=== PATIENT | male | born 1985 | race African-American/Black ===

== ENCOUNTER 2017-01-22 09:56 | Inpatient (IN) | payer OTHER ==
[~2017-01-22] VITALS: Ht 170.2 cm; Wt 60.6 kg
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
--- NOTE | ~2017-01-22 | CR72 ---
[facility] A Service of [facility] RADIOLOGY TEXT RESULTS PATIENT: JEROME DAVIS LOCATION: [facility] 319-01 : [birth year] UNIT #: [id number] AGE: [address]: Ayse Tong MD SEX: M ORDER DR: [id number] [address] [address] [id number] I MR#: [id number] Acc #: [id number] NAME: JEROME DAVIS : 1985 SEX: M STUDY DATE/TIME: 01/22/2017 16:17 UNIT: [employer] [facility] ROOM: [id number] STUDY DESCRIPTION: CR Chest Single View Portable Attending Physician: Ayse Tong M.D. Ordering Physician: Ayse Tong M.D. Primary Care Physician: No Primary Care Physician MEDICAL IMAGING REPORT This report is preliminary unless electronic signature is present EXAM AP portable chest Date: 01/22/2017 HISTORY Cough, congestion, elevated white blood cell count since yesterday. Alcohol withdrawal. COMPARISON None. FINDINGS A single AP portable view of the chest shows both lungs to be clear. The heart is normal in size. The mediastinal contour is normal. No significant bone abnormalities are seen. IMPRESSION Normal portable chest. Dictated by... Santa Franklin M.D. THIS IS AN ELECTRONICALLY VERIFIED REPORT Santa Franklin M.D. at 01/25/2017 8:50 AM JOANNE/jhonny TD: 01/23/2017 03:37 JOB #: [id number] MEDICAL IMAGING REPORT [facility] A Service of [facility] RADIOLOGY TEXT RESULTS PATIENT: JEROME DAVIS LOCATION: [facility] 319-01 : [birth year] UNIT #: [id number] AGE: [address]: Ayse Tong MD SEX: M ORDER DR: Page 1 of 1 COPY
--- NOTE | ~2017-01-22 | DS ---
Unit #: [id number] #: [id number] Patient: JEROME DAVIS [id number] [address] [address] [id number] I MR#: [id number] NAME: JEROME DAVIS ROOM: 319 Age: 31 Sex: M Admission Date: 01/22/2017 : 1985 Discharge Date: 01/24/2017 Attending Physician: Ayse Tong M.D. Primary Care Physician: No Primary Care Physician DISCHARGE SUMMARY FINAL DIAGNOSIS Alcohol intoxication and alcohol withdrawal. SECONDARY DIAGNOSES 1. Hypertension. 2. Acute kidney injury. CONSULTS 1. Dr. Webb. 2. Pulmonary, Dr. Yazmin Dougherty. HOSPITAL COURSE Isrvso-rlzd-fqob-old male who basically was binge drinking. Was seen and evaluated and admitted through the emergency room. Patient was seen and evaluated. He had some anion gap metabolic acidosis with (1) withdrawal. He is currently evaluated, suitable and stable for discharge. He will be discharged in stable condition. MEDICATIONS Medications on discharge include: 1. Librium 25 mg p.o. b.i.d. (number 14 pills given). 2. Lopressor 25 mg p.o. b.i.d. 3. Hydrochlorothiazide 25 mg p.o. daily. DISCHARGE PLAN He currently does not have a primary care provider. He is scheduled to follow up with me in the office. He is to call to schedule an appointment at [address] [place] [address]. NOTE: Time spent coordinating discharge was about 27 minutes. Dictated by... Shital Lantigua/renard TD: 01/24/2017 15:28 JOB #: [id number] Unit #: [id number] #: [id number] Patient: JEROME DAVIS DISCHARGE SUMMARY Page 1 of 1 X Myah Gonzalez MD DISCHARGE SUMMARY
--- NOTE | ~2017-01-22 | CO ---
Unit #: [id number] #: [id number] Patient: JEROME AGUILLON [id number] [id number] [facility]. [place], [place] [address] [id number] I MR#: [id number] NAME: JEROME AGUILLON ROOM: 319 Age: 31 Sex: M Admission Date: 01/22/2017 : 1985 Attending Physician: Ayse Tong M.D. Primary Care Physician: Primary Care Physician No Consultation Date: 01/23/2017 CONSULTATION REPORT REASON FOR CONSULTATION Alcohol abuse, withdrawal. HISTORY OF PRESENT ILLNESS Mr. Jerome Aguillon is a 31-year-old male, seen in room 9 in the emergency room at [facility] on 01/23/2017. The patient was pleasant, cooperative during interview. Able to answer questions appropriately. Reported that he was drinking over a gallon of alcohol since age 21 every day. The patient reported having withdrawals, anxious, nervous, but denied any suicidal or homicidal ideation. Denied any psychotic symptom at this time. The patient denied any depression or any previous treatment except once. The patient's vital signs; temperature 98.0, pulse 114, respiratory rate 16, blood pressure 150/100, oxygen saturation 97%. PAST PSYCHIATRIC HISTORY Unknown for any history of any previous psychiatric treatment. History of one-time detox, details unknown at this time. No history of any suicide attempt, depression, or anxiety. MEDICAL HISTORY Remarkable for history of seizure related to alcohol. No other chronic medical illness. HOME MEDICATIONS None. ALLERGIES No known drug allergies. FAMILY HISTORY AND SOCIAL HISTORY The patient reports that he has a good support system from his . No history of abuse. No history of any illicit drugs except use of alcohol on a daily basis. REVIEW OF SYSTEMS Complete review of systems is unremarkable except as mentioned above. Vital signs, please see above. MENTAL STATUS EXAMINATION General appearance, the patient dressed casually in hospital attire, lying comfortably in bed. Attention span and concentration, fair. Speech, regular rate and coherent. Oriented in time, place, and person. Mood and affect, labile. Thought process, coherent. Thought content, the patient Unit #: [id number] #: [id number] Patient: JEROME AGUILLON denied any thoughts of harming self or others or any psychotic symptom. Recent and remote memory, fair. Language, intact. Fund of knowledge, fair to slightly impaired. DIAGNOSIS Psychiatric: Alcohol use disorder, severe, F10.20. Secondary diagnosis: Deferred. Medical diagnosis: Please refer to H and P. Stressors: Psychosocial stressors. ASSESSMENT/PLAN 1. Supportive psychotherapy and psychoeducation provided to the patient. 2. Educated about benefits and side effects of medication and course and prognosis of illness. 3. Advised to continue with the detox protocol, CIWA protocol. If needed, consider further adjustment of medication. Please feel free to call if any questions, telephone # . Dictated by... Shital Calixto/daniel TD: 01/24/2017 00:59 JOB #: [id number] CONSULTATION REPORT Page 1 of 1 X Ollie Webb MD X CONSULTATION REPORT
--- NOTE | ~2017-01-22 | CO ---
Unit #: [id number] #: [id number] Patient: JEROME AGUILLON [id number] [address] [place], [place] [address] [id number] I MR#: [id number] NAME: JEROME AGUILLON ROOM: 319 Age: 31 Sex: M Admission Date: 01/22/2017 : 1985 Attending Physician: Ayse Tong M.D. Primary Care Physician: Primary Care Physician No CONSULTATION REPORT REASON FOR CONSULTATION Electrolyte abnormality. HISTORY OF PRESENT ILLNESS Mr. Aguillon is a 31-year-old black male with past medical history of alcohol abuse of about fifth of whisky a day, who presented to the hospital because of nausea, vomiting, and abdominal pain associated with thin bout of dark emesis in the last 24 hours. Upon arrival to the emergency department, his blood pressure was 150/100 with carbon dioxide of 12 and anion gap of 31, BUN was 24, and creatinine was 1.7 mg/dL with urinalysis that showed +3 ketone. The patient was started on IV hydration and admitted to the hospital. We were consulted to help in management of electrolyte abnormalities and acute kidney injury. Of note, latest lab showed creatinine of 0.7, potassium of 3, and phos of 1.5. The patient stated that he does not eat much when drinks alcohol. PAST MEDICAL HISTORY Alcohol abuse. HOME MEDICATIONS None. PAST SURGICAL HISTORY None. ALLERGIES No known drug allergy. SOCIAL HISTORY Denied IV drug abuse. Positive for drinking. REVIEW OF SYSTEMS A 12-point of review of systems was conducted and they were all negative except what is per history of present illness. PHYSICAL EXAMINATION GENERAL: Alert and oriented x3, in no acute distress. VITAL SIGNS: Temperature 98, heart rate 87, blood pressure 118/71, pulse 78, respiratory rate 18. HEENT: Normocephalic and atraumatic. Pupils are equal, round, and reactive to light and accommodation. Extraocular muscles are intact. NECK: No JVD. No lymphadenopathy. CHEST: Clear to auscultation bilaterally. HEART: Regular rate and rhythm. S1 and S2 normal. Unit #: [id number] #: [id number] Patient: JEROME AGUILLON ABDOMEN: Bowel sounds positive. No tenderness. No guarding. EXTREMITIES: No edema, no cyanosis, no clubbing. DIAGNOSTIC STUDIES LABORATORY RESULTS: Potassium is 3, creatinine 0.7, phos 1.5. ASSESSMENT AND PLAN 1. Acute kidney injury due to volume depletion due to emesis and decrease oral intake, improves with IV hydration. 2. Hypokalemia, most likely related to hypomagnesemia as well as we will magnesium, however, his last magnesium was 2 in the blood. I am going to start the patient on potassium supplement 20 mEq p.o. daily as the patient is being started on hydrochlorothiazide as well for his hypertension. 3. Hypophosphatemia. Educated about increasing oral intake and eating food rich with phosphorus. I had a lengthy discussion with the patient more than 35 minutes about quitting alcohol as well. 4. Hypertension. The patient is being started on hydrochlorothiazide. We will need to follow up with Dr. Ashby in 1 to 2 weeks with BMP, magnesium, and phosphate before his visit. 5. Alcohol abuse. Educated about quitting alcohol. Dictated by... Shital Magaña/daniel TD: 01/24/2017 19:16 JOB #: [id number] CONSULTATION REPORT Page 1 of 1 X X CONSULTATION REPORT
--- NOTE | ~2017-01-22 | CO ---
Unit #: [id number] #: [id number] Patient: JEROME DAVIS [id number] [address] [address] [id number] I MR#: [id number] NAME: JEROME DAVIS ROOM: 319 Age: 31 Sex: M Admission Date: 01/22/2017 : 1985 Attending Physician: Ayse Tong M.D. Primary Care Physician: Primary Care Physician No Consultation Date: 01/22/2017 CONSULTATION REPORT REASON FOR CONSULTATION Acute kidney injury and anion gap metabolic acidosis. HISTORY OF PRESENT ILLNESS This 31-year-old male with known alcohol abuse came in to the hospital today with abdominal pain. He recently binged drink some beer and has had nausea and vomiting for the past 24 hours. In the emergency room, his anion gap was around 19 with a serum bicarbonate of 13. PAST MEDICAL HISTORY Significant for, 1. Seizures related to alcohol withdrawal. 2. Alcohol abuse. PAST SURGICAL HISTORY Left shoulder surgery. HOME MEDICATIONS None. ALLERGIES None. FAMILY HISTORY Noncontributory. REVIEW OF SYSTEMS Currently, he denies chest pain, shortness of breath, nausea, or vomiting. At present, he received some Zofran and Ativan. He denies ingestion of anything other than beer. Other 13 systems reviewed, unless noted are negative. PHYSICAL EXAMINATION VITAL SIGNS: His temperature is 98, heart rate is 114, blood pressure 150/100. He is 97% on room air. HEENT: Extraocular muscles are intact. No eye drainage or icterus. Oropharynx is clear. NECK: Supple without JVD, thyromegaly, or carotid bruit. CHEST: Clear to auscultation bilaterally. CARDIAC: S1 and S2. Normal sinus rhythm. No gallop or rub. ABDOMEN: Soft, nontender, and nondistended. Positive bowel sounds. No hepatosplenomegaly. EXTREMITIES: No cyanosis, clubbing, or edema. Unit #: [id number] #: [id number] Patient: JEROME DAVIS DIAGNOSTIC STUDIES LABORATORY RESULTS: Show sodium 132, potassium of 5, chloride of 100, bicarbonate of 13, BUN of 19, creatinine of 1.3, glucose of 90, anion gap of 19, serum osmolality is pending. Urinalysis shows 3+ protein, 3+ blood, rbc's 10-25, wbc's 0-2. ABG 7.3, pCO2 of 25, pO2 of 97. ASSESSMENT 1. Acute kidney injury with anion gap metabolic acidosis. At this point, this looks more like ingestion of ethanol and dehydration. He does have acidemia on the blood gas, so I will give him a short course of bicarbonate drip. Serum osmolality will be checked, and methanol and ethylene glycol level will also be sent, although he denies ingestion of these things. 2. Abnormal urinalysis. I would like to have this urine repeated. 3. History of alcohol withdrawal seizures. 4. Tobacco abuse. 5. Alcoholism. I discussed trying to enter treatment program with him. PLAN We will give him 1 L of half-normal saline with 75 mEq of bicarbonate. He can also take some oral bicarbonate and await serum osmolarity and other studies that have been ordered. He is going to be admitted to the intensive care unit. Thank you very much for allowing me to see Johnny Benz in consultation. Dictated by... Vandana Beth M.D. REX/daniel TD: 01/22/2017 22:43 JOB #: [id number] CONSULTATION REPORT Page 1 of 1 X Vandana Beth MD CONSULTATION REPORT
--- NOTE | ~2017-01-22 | EKG ---
PATIENT: JEROME DAVIS UNIT #: [id number] Ventricular Rate: 82 BPM Atrial Rate: 82 BPM P-R Interval: 128 ms QRS Duration: 76 ms Q-T Interval: 372 ms QTC Calculation(Bezet): 434 ms P [place]: 31 degrees Calculated R [place]: 41 degrees Calculated T [place]: 18 degrees Diagnosis Line: Normal sinus rhythm Diagnosis Line: Normal ECG Diagnosis Line: When compared with ECG of 18-JAN-2014 09:43, Diagnosis Line: No significant change was found Diagnosis Line: Confirmed by MOISES ORR MD ([id number]) on 01/23/2017 Diagnosis Line: 3:45:04 PM INTERPRETING MD: KIRBY NATH
--- NOTE | ~2017-01-22 | CO ---
Unit #: [id number] #: [id number] Patient: JEROME DAVIS [id number] [facility]. [place], [place] [address] [id number] I MR#: [id number] NAME: JEROME DAVIS ROOM: 319 Age: 31 Sex: M Admission Date: 01/22/2017 : 1985 Attending Physician: Ayse Tong M.D. Primary Care Physician: Primary Care Physician No Consultation Date: 01/24/2017 CONSULTATION REPORT REASON FOR CONSULTATION Followup. DISCUSSION Mr. Bandar Benz is a 31-year-old male, seen in room 319, bed 1 on 01/24/2017 at [facility]. The patient was admitted for the alcohol detox and alcohol withdrawal. The patient reports feeling better. Denied any suicidal or homicidal ideation. Denied any psychotic symptom. The patient is agreeable to follow up in CD-I[facility] program of [facility] and consider Vivitrol injection and ReVia. The patient's vital signs; temperature 98.0, pulse 78, respirations 18, blood pressure 155/108, oxygen saturation 100%. REVIEW OF SYSTEMS Complete review of systems unremarkable. MENTAL STATUS EXAMINATION General appearance; the patient dressed casually in hospital attire, lying comfortably in bed. Attention span and concentration, fair. Speech, regular rate and coherent. Oriented in time, place, and person. Mood and affect, labile. Thought process, coherent. Thought content, the patient denied any thoughts of harming self or others or any psychotic symptom. Recent and remote memory, fair. Language, intact. Fund of knowledge, fair to slightly impaired. Insight and judgment, fair to slightly impaired. DIAGNOSES Psychiatric: Alcohol use disorder, severe, F10.20; mood disorder, not otherwise specified, F32.9. Secondary diagnosis: Deferred. ASSESSMENT AND PLAN 1. Supportive psychotherapy and psychoeducation provided to the patient. 2. Educated about benefits and side effects of medication and course and prognosis of illness. 3. Advised the patient to follow up in [facility] program of [facility]. The patient was given crisis line #[phone] with a plan to consider injection Vivitrol. Dictated by... Ollie Webb M.D. Unit #: [id number] #: [id number] Patient: JEROME DAVIS EMRE/daniel TD: 01/24/2017 23:56 JOB #: [id number] CONSULTATION REPORT Page 1 of 1 X Ollie Webb MD CONSULTATION REPORT
[~2017-01-22 09:56] MED LIST: AUGMENTIN PO; MEDROL4 MG/DOSE- PO; MOTRIN400 MG PO
[2017-01-22 11:16] LABS: BASOPHIL% 0.1 % (0-2.5); EOSINOPHIL% 0.1 % (0.0-7.0); HEMATOCRIT 39.8 % (38.0-50.0); LYMPHOCYTE# 1.5 X10e3 (1.0-3.5); LYMPHOCYTE% 9.8 % (17.0-45.0); MEAN CELL VOLUME 91.1 FL (83-96); MEAN CORPUSCULAR HEMOGLOBIN 29.8 PG (28-34); MEAN CORPUSCULAR HGB CONC 32.7 g/dL (30-36); MEAN PLATELET VOLUME 7.5 FL (6.5-11.5); MONOCYTE# 0.9 X10e3 (0-1.0); MONOCYTE% 5.9 % (3.0-12.0); NEUTROPHIL# 12.6 X10e3 (1.5-7.1); NEUTROPHIL% 84.1 % (40-75); PLATELET COUNT 254 X10e3 (140-420); RED BLOOD COUNT 4.37 X10e (3.90-5.60); RED CELL DISTRIBUTION WIDTH 14.9 % (11.0-15.5)
[2017-01-22 11:17] LABS: DIFF IND NO
[2017-01-22 11:40] LABS: URINE SOURCE CLEAN CATCH
[2017-01-22 11:45] LABS: URINE APPEARANCE CLEAR; URINE BILIRUBIN NEG (NEG); URINE BLOOD 3+ (NEG); URINE COLOR YELLOW; URINE GLUCOSE NEG (NEG); URINE KETONE 3+ (NEG); URINE LEUKOCYTE ESTERASE NEG (NEG); URINE NITRATE NEG (NEG); URINE PROTEIN 3+ (NEG); URINE SPECIFIC GRAVITY 1.018 (1.003-1.035)
[2017-01-22 11:48] LABS: URINE BACTERIA AUWI NEG (NEGATIVE); URINE SQUAMOUS EPITHELIAL CELL NONE SEEN /[HPF]; UWBCS1 AUWI 0-2 (0-5)
[2017-01-22 11:52] LABS: BILIRUBIN, DIRECT 0.1 mg/dL (0.0-0.2); BILIRUBIN,TOTAL 2.1 mg/dL (0.2-2.0); BUN/CREATININE RATIO 14.11; CALCIUM SERUM 9.7 mg/dL (8.4-10.2); CREATININE SERUM 1.7 mg/dL (0.6-1.4); GLOM FILT RATE Estimated 61.8 mL/min (>60); PROTEIN TOTAL SERUM 10.8 g/dL (6.0-8.3)
[2017-01-22 12:34] LABS: CULTURE INDICATED? NO; U HYALINE CASTS AUWI 25-50 /[LPF]
[2017-01-22 12:35] LABS: URINE AMORPHOUS SEDIMENT AMORP URATES; URINE GRANULAR CAST 0-2 /[HPF]; URINE MUCUS PRESENT; URINE WAXY CAST 0-2 /[HPF]
[2017-01-22] MEDS ORDERED: NO MEDICATIONS (14:29)
[2017-01-22 16:38] LABS: AMPHETAMINE NEG (NEG); BARBITURATES NEG (NEG); BENZODIAZEPINES NEG (NEG); COCAINE NEG (NEG); MARIJUANA NEG (NEG); OPIATES NEG (NEG); TRICYCLIC ANTIDEPRESSANTS NEG (NEG); U METHADONE NEG (NEG)
[2017-01-22 16:42] LABS: ARTERIAL BLD GAS O2 SATURATION 98.1 % (90.0-100.0); ARTERIAL BLOOD GAS CARBOXY HB 1.1 %sat (0.0-9.0); ARTERIAL BLOOD GAS HCO3 12.8 mmol/L; ARTERIAL BLOOD GAS MET HB 1.3 %sat (0.0-2.0); ARTERIAL BLOOD GAS PCO2 25.9 mmHg (35.0-45.0); ARTERIAL BLOOD GAS PO2 97.7 mmHg (80.0-100); ARTERIAL BLOOD GAS pH 7.304 (7.350-7.450)
[2017-01-22 16:43] LABS: ARTERIAL BLOOD GAS ALLEN TEST NORMAL; ARTERIAL BLOOD GAS ART SITE LEFT RADIAL; ARTERIAL DRAW? YES
[2017-01-22 17:30] LABS: BUN/CREATININE RATIO 14.61; CALCIUM SERUM 8.6 mg/dL (8.4-10.2); CREATININE SERUM 1.3 mg/dL (0.6-1.4); GLOM FILT RATE Estimated 85.5 mL/min (>60)
[2017-01-22 20:28] LABS: BUN/CREATININE RATIO 13.33; CALCIUM SERUM 8.7 mg/dL (8.4-10.2); CREATININE SERUM 1.2 mg/dL (0.6-1.4); GLOM FILT RATE Estimated 94.2 mL/min (>60); POTASSIUM 4.4 mmol/L (3.5-5.1)
[2017-01-24 06:11] LABS: BASOPHIL% 0.3 % (0-2.5); EOSINOPHIL# 0.1 X10e3 (0-0.7); EOSINOPHIL% 0.7 % (0.0-7.0); HEMATOCRIT 32.7 % (38.0-50.0); LYMPHOCYTE# 1.5 X10e3 (1.0-3.5); LYMPHOCYTE% 21.5 % (17.0-45.0); MEAN CELL VOLUME 90.1 FL (83-96); MEAN CORPUSCULAR HEMOGLOBIN 30.3 PG (28-34); MEAN CORPUSCULAR HGB CONC 33.7 g/dL (30-36); MEAN PLATELET VOLUME 7.9 FL (6.5-11.5); MONOCYTE# 0.5 X10e3 (0-1.0); MONOCYTE% 7.1 % (3.0-12.0); NEUTROPHIL# 5.1 X10e3 (1.5-7.1); NEUTROPHIL% 70.4 % (40-75); PLATELET COUNT 137 X10e3 (140-420); RED BLOOD COUNT 3.63 X10e (3.90-5.60)
[2017-01-24 06:14] LABS: WHITE BLOOD COUNT 7.2 X10e3 (4.0-10.5)
[2017-01-24 06:16] LABS: DIFF IND NO
[2017-01-24 06:34] LABS: BLOOD UREA NITROGEN <5 mg/dL (9-23); BUN/CREATININE RATIO 7.14; CALCIUM SERUM 9.2 mg/dL (8.4-10.2); CARBON DIOXIDE 24 mmol/L (22-31); CHLORIDE 103 mmol/L (100-111); CREATININE SERUM 0.7 mg/dL (0.6-1.4); GLOM FILT RATE Estimated 147.9 mL/min (>60); GLUCOSE FASTING 125 mg/dL (70-110); MAGNESIUM 1.6 mg/dL (1.6-3.0); SODIUM 137 mmol/L (135-145)
[2017-01-24 06:40] LABS: THYROID STIMULATING HORMONE 2.63 uIU/ml (0.34-5.60)
[2017-01-24 06:49] LABS: FREE THYROXIN (T4) 0.65 ng/dL (0.58-1.64)
[2017-01-24] MEDS ORDERED: HYDROCHLOROTHIA25 MG PO (16:27)
[2017-01-24] MEDS ORDERED: LIBRIUM25 M1 PO (16:27)
[2017-01-24] MEDS ORDERED: METOPROLOL TART25 MG PO (16:29)
[2017-01-24] MEDS ORDERED: MULTIVITAMINS1 EAC3 PO (16:31)
[2017-01-24] MEDS ORDERED: K-DUR20 ME1 PO (16:33)
== END 2017-01-24 18:07 | disposition home or self-care (01) | DRG 683 ==
LOC: CED 09:56 → CEDOF 15:30 → CED 15:37 → CEDOF 15:37 → C3A PCU 01-23 15:30
PROVIDERS: Emergency Medicine; Family Medicine
DX: N17.9 Acute kidney failure, unspecified (principal); F10.239 Alcohol dependence with withdrawal, unspecified; E87.2 Acidosis; E83.42 Hypomagnesemia; D72.829 Elevated white blood cell count, unspecified; F17.200 Nicotine dependence, unspecified, uncomplicated; E87.6 Hypokalemia; E83.39 Other disorders of phosphorus metabolism; I10 Essential (primary) hypertension; Z71.41 Alcohol abuse counseling and surveillance of alcoholic; F10.229 Alcohol dependence with intoxication, unspecified
CPT/HCPCS: 36415; 36600; 71010; 80048; 80076; 80307; 81003; 82803; 82947; 83690; 83735; 83930; 84100; 84439; 84443; 84484; 85025; 87040; 93005; 94640; 94760; 96361; 96374; 96375; 99285; C9113; J2060; J2405; J3411; J3475; J7042